=== PATIENT | female | born 1975 | race Caucasian/White ===

== ENCOUNTER → 2018-11-13 14:28 | Outpatient (CLI) | payer OTHER, SELFPAY ==
[2018-07-11 19:29] VITALS: BMI 43.3
--- NOTE | 2018-11-13 14:32 | RAD_ITS ---
STUDY: X-RAY - LEFT HAND, ATTENTION THIRD FINGER REASON FOR EXAM: Female, 43 years old. Injury one month ago, suggesting are still swollen, left middle finger TECHNIQUE: 3 view(s) of the finger were obtained. COMPARISON: None. FINDINGS: Normal metacarpal head. Normal metacarpophalangeal joint. Normal proximal phalanx. Normal middle phalanx. Normal distal phalanx. Normal proximal interphalangeal joint. Normal distal interphalangeal joint. Soft tissue swelling most pronounced along the proximal interphalangeal joint. RAD/Finger(s) Min 2 Views IMPRESSION: Soft tissue injury. There is no acute displaced fracture or dislocation. Electronically Signed: Love Mariee MD at 7:57 EDT , Service support ,
== END ==
LOC: HPRAD 14:28
PROVIDERS: Referring Provider Orthopaedic Surgery; Visit Provider Orthopaedic Surgery
DX: M79.645 Pain in left finger(s) (principal)
CPT/HCPCS: 73140

== ENCOUNTER → 2020-03-19 10:08 | Outpatient (CLI) | payer OTHER, SELFPAY ==
[2020-02-19 11:45] VITALS: BMI 41.9
--- NOTE | 2020-03-19 10:09 | RAD_ITS ---
STUDY: X-RAY - RIGHT ELBOW REASON FOR EXAM: Female, 44 years old. ELBOW PAIN X 3 MONTHS AFTER OVERUSE TECHNIQUE: 3 view(s) of the elbow. COMPARISON: None. FINDINGS: Normal visualized humerus, radius and ulna. Normal radiocapitellar and ulnotrochlear articulations. The soft tissue structures are unremarkable. RAD/Elbow min 3 Views IMPRESSION: Normal x-ray examination of the elbow. Electronically Signed: Tim Jacobson MD at 11:33 EDT , Service support ,
--- NOTE | 2020-03-19 10:44 | RAD_ITS ---
STUDY: X-RAY - RIGHT HUMERUS REASON FOR EXAM: Female, 44 years old. ARM PAIN X 3 MONTHS AFTER OVERUSE TECHNIQUE: 2 view(s) of the humerus. COMPARISON: None. FINDINGS: Normal visualized humerus. There is no demonstrated fracture or osseous destructive process. There is no demonstrated soft tissue abnormality. RAD/Humerus min 2 Views IMPRESSION: Normal x-ray examination of the humerus. Electronically Signed: Tim Jacobson MD at 11:35 EDT , Service support ,
== END ==
PROVIDERS: Referring Provider Orthopaedic Surgery; Visit Provider Orthopaedic Surgery
DX: M25.521 Pain in right elbow (principal)
CPT/HCPCS: 73060; 73080